=== PATIENT | female | born 1995 | race African-American/Black ===

== ENCOUNTER 2018-07-24 12:42 | Emergency (ER) | payer BC, MEDICAID, OTHER ==
[~2018-07-24] VITALS: Ht 167.6 cm; Wt 120.0 kg
[2018-07-24 15:25] VITALS: BP 141/86
== END 2018-07-24 16:29 | disposition home or self-care (01) ==
LOC: ER 16:08
DX: J06.9 Acute upper respiratory infection, unspecified (principal); H66.90 Otitis media, unspecified, unspecified ear; J32.9 Chronic sinusitis, unspecified; F12.10 Cannabis abuse, uncomplicated; Z88.6 Allergy status to analgesic agent
CPT/HCPCS: 99283

== ENCOUNTER 2019-04-09 11:24 | Emergency (ER) | payer BC, MEDICAID, OTHER ==
[~2019-04-09] VITALS: Ht 167.6 cm; Wt 118.0 kg
[2019-04-09 13:50] LABS: CLARITY URINE CLEAR (CLEAR); COLOR URINE YELLOW (YELLOW); KETONES URINE NEGATIVE (NEGATIVE); LEUKOCYTE ESTERASE URINE NEGATIVE (NEGATIVE); NITRITE URINE NEGATIVE (NEGATIVE); OCCULT BLOOD URINE TRACE (NEGATIVE); PH URINE 5.5 (4.5-8.0); PROTEIN URINE NEGATIVE (NEGATIVE); SPECIFIC GRAVITY URINE 1.015 (1.005-1.030); UROBILINOGEN URINE 0.2 E.U./dL (0.2-1.0)
[2019-04-09 15:32] VITALS: BP 148/73
== END 2019-04-09 17:04 | disposition home or self-care (01) ==
LOC: ER 11:24
DX: R30.0 Dysuria (principal); F12.10 Cannabis abuse, uncomplicated; Z88.6 Allergy status to analgesic agent; Z87.440 Personal history of urinary (tract) infections
CPT/HCPCS: 81025; 99283

== ENCOUNTER 2019-07-31 08:14 | Emergency (ER) | payer MEDICAID ==
[~2019-07-31] VITALS: Ht 167.6 cm; Wt 120.0 kg
[2019-07-31 09:27] LABS: CLARITY URINE CLEAR (CLEAR); COLOR URINE YELLOW (YELLOW); KETONES URINE NEGATIVE (NEGATIVE); LEUKOCYTE ESTERASE URINE NEGATIVE (NEGATIVE); NITRITE URINE NEGATIVE (NEGATIVE); OCCULT BLOOD URINE TRACE (NEGATIVE); PROTEIN URINE NEGATIVE (NEGATIVE); SPECIFIC GRAVITY URINE 1.013 (1.005-1.030); UROBILINOGEN URINE 0.2 E.U./dL (0.2-1.0)
[2019-07-31 10:09] VITALS: BP 136/74
== END 2019-07-31 10:12 | disposition home or self-care (01) ==
LOC: ER 08:32
DX: R30.0 Dysuria (principal); R10.2 Pelvic and perineal pain; F12.10 Cannabis abuse, uncomplicated; Z88.6 Allergy status to analgesic agent; Z87.440 Personal history of urinary (tract) infections
CPT/HCPCS: 81003; 81025; 82962; 99283

== ENCOUNTER 2020-05-24 16:29 | Emergency (ER) | payer MEDICAID, OTHER ==
[~2020-05-24] VITALS: Ht 167.6 cm; Wt 120.0 kg
[2020-05-24] MEDS ORDERED: METF-416 PO (16:37)
[2020-05-24] MEDS ORDERED: HYDROCODONE/ACETAMINOPHEN 5/325MG TABLET PO ONE (17:45)
[2020-05-24 17:46] VITALS: BP 149/97
== END 2020-05-24 18:23 | disposition home or self-care (01) ==
LOC: ER 16:29
DX: M54.30 Sciatica, unspecified side (principal); F12.10 Cannabis abuse, uncomplicated
CPT/HCPCS: 99283

== ENCOUNTER 2020-06-06 09:11 | Emergency (ER) | payer OTHER ==
[~2020-06-06] VITALS: Ht 167.6 cm; Wt 127.0 kg
[~2020-06-06 09:11] MED LIST: METF-416 PO
[2020-06-06 09:16] VITALS: BP 149/75
[2020-06-06] MEDS ORDERED: OXYCODONE HCL/ACETAMINOPHEN 5/325MG TABLET PO ONE (11:15)
== END 2020-06-06 11:58 | disposition home or self-care (01) ==
LOC: ER 09:11
DX: M54.31 Sciatica, right side (principal); N39.0 Urinary tract infection, site not specified; Z88.6 Allergy status to analgesic agent
CPT/HCPCS: 99281

== ENCOUNTER 2021-02-14 04:24 | Emergency (ER) | payer OTHER ==
[~2021-02-14] VITALS: Ht 167.6 cm; Wt 127.0 kg
[2021-02-14] MEDS ORDERED: KETOROLAC 30MG/ML VIAL IM ONE (05:00)
[2021-02-14] MEDS ORDERED: IBUP-2029 MT ×2 (06:02)
[2021-02-14 06:06] LABS: CLARITY URINE CLEAR (CLEAR); COLOR URINE YELLOW (YELLOW); KETONES URINE NEGATIVE (NEGATIVE); LEUKOCYTE ESTERASE URINE NEGATIVE (NEGATIVE); NITRITE URINE NEGATIVE (NEGATIVE); OCCULT BLOOD URINE 3+ (NEGATIVE); PH URINE 5.5 (4.5-8.0); PROTEIN URINE NEGATIVE (NEGATIVE); SPECIFIC GRAVITY URINE 1.013 (1.005-1.030); UROBILINOGEN URINE 0.2 E.U./dL (0.2-1.0)
[2021-02-14] MEDS ORDERED: NAP5EC MT (06:37)
[2021-02-14 06:48] VITALS: BP 119/72
== END 2021-02-14 06:56 | disposition home or self-care (01) ==
LOC: ER 04:24
DX: S29.011A Strain of muscle and tendon of front wall of thorax, initial encounter (principal); R35.0 Frequency of micturition; E28.2 Polycystic ovarian syndrome; M54.30 Sciatica, unspecified side; F12.10 Cannabis abuse, uncomplicated; X50.0XXA Overexertion from strenuous movement or load, initial encounter; Y93.89 Activity, other specified; Y92.89 Other specified places as the place of occurrence of the external cause; Y99.8 Other external cause status
CPT/HCPCS: 81003; 82962; 96372; 99283; J1885

== ENCOUNTER 2021-09-10 18:56 | Emergency (ER) | payer OTHER ==
[~2021-09-10] VITALS: Ht 162.6 cm; Wt 91.0 kg
[~2021-09-10 18:56] MED LIST changes: +NAP5EC MT
[2021-09-10] MEDS ORDERED: ACETAMINOPHEN 325MG TABLET PO ONE (21:00)
[2021-09-10] MEDS ORDERED: IBUPROFEN 400MG TABLET PO ONE (21:00)
[2021-09-10] MEDS ORDERED: ONDANSETRON 4MG ODT PO ONE (21:15)
[2021-09-10 21:59] LABS: BASOPHILS % 0.4 % (0.0-2.0); EOSINOPHILS % 2.3 % (0.0-5.0); HEMATOCRIT. 36.4 % (36.0-48.0); HEMOGLOBIN. 12.1 g/dL (12.0-16.0); LYMPHOCYTES % 34.6 % (20.0-50.0); MEAN CORPUSCULAR HEMOGLOBIN 29.6 pg (28.0-32.0); MEAN PLATELET VOLUME 7.8 fl (7.4-10.4); MONOCYTES % 7.2 % (2.0-8.0); NEUTROPHILS % 55.5 % (40.0-76.0); PLATELET 333 x1000/uL (130-400); RED BLOOD CELL COUNT 4.08 mill/uL (4.2-5.4); RED CELL DISTRIBUTION WIDTH 13.5 % (11.6-14.6)
[2021-09-10 22:06] LABS: CHLORIDE 109 mEq/L (98-107)
[2021-09-11 00:05] VITALS: BP 124/81
== END 2021-09-11 00:05 | disposition home or self-care (01) ==
LOC: ER 18:56
DX: R51.9 Headache, unspecified (principal); F12.10 Cannabis abuse, uncomplicated
CPT/HCPCS: 36415; 80053; 81025; 85025; 99284; Q0162

== ENCOUNTER 2021-11-07 22:20 | Emergency (ER) | payer MEDICAID, OTHER ==
[~2021-11-07] VITALS: Ht 167.6 cm; Wt 118.0 kg
[2021-11-07] MEDS ORDERED: ALBUTEROL 6.7GM HFA INHALER ORI ONE (22:45)
[2021-11-07] MEDS ORDERED: IBUPROFEN 400MG TABLET PO ONE (22:45)
[2021-11-07 23:30] LABS: BASOPHILS % 0.6 % (0.0-2.0); HEMOGLOBIN. 12.7 g/dL (12.0-16.0); LYMPHOCYTES % 21.1 % (20.0-50.0); MEAN CORPUSCULAR HEMOGLOBIN 29.6 pg (28.0-32.0); MEAN CORPUSCULAR VOLUME 88.6 fL (81.0-99.0); MONOCYTES % 8.2 % (2.0-8.0); NEUTROPHILS % 67.1 % (40.0-76.0); PLATELET 314 x1000/uL (130-400); RED BLOOD CELL COUNT 4.29 mill/uL (4.2-5.4); RED CELL DISTRIBUTION WIDTH 13.7 % (11.6-14.6)
[2021-11-07 23:33] LABS: CHLORIDE 107 mEq/L (98-107)
[2021-11-07 23:51] LABS: HCG SCREEN NEGATIVE
[2021-11-08] MEDS ORDERED: AMOX-494 MT (00:34)
[2021-11-08] MEDS ORDERED: ALBU6.7H9 INH (00:34)
[2021-11-08 00:45] VITALS: BP 129/90
== END 2021-11-08 00:47 | disposition home or self-care (01) ==
LOC: ER 22:20
DX: J45.901 Unspecified asthma with (acute) exacerbation (principal); H66.92 Otitis media, unspecified, left ear; F12.10 Cannabis abuse, uncomplicated
CPT/HCPCS: 36415; 71045; 80053; 84703; 85025; 93005; 94640; 99285

== ENCOUNTER 2021-11-21 16:03 | Emergency (ER) | payer MEDICAID ==
[~2021-11-21] VITALS: Ht 167.6 cm; Wt 123.0 kg
[~2021-11-21 16:03] MED LIST changes: +ALBU6.7H9 INH; +AMOX-494 MT
[2021-11-21] MEDS ORDERED: ONDANSETRON 4MG ODT PO ONE (18:45)
[2021-11-21] MEDS ORDERED: SODIUM CHLORIDE 0.9% 1,000 ML IV ONE (18:45)
[2021-11-21] MEDS ORDERED: ONDANSETRON HCL 4MG/2ML INJ IV STA (18:45)
[2021-11-21 19:50] LABS: HEMATOCRIT. 39.8 % (36.0-48.0); HEMOGLOBIN. 13.6 g/dL (12.0-16.0); MEAN CORPUSCULAR HEMOGLOBIN 30.2 pg (28.0-32.0); MEAN CORPUSCULAR VOLUME 88.3 fL (81.0-99.0); MEAN PLATELET VOLUME 8.2 fl (7.4-10.4); PLATELET 315 x1000/uL (130-400); RED BLOOD CELL COUNT 4.51 mill/uL (4.2-5.4); RED CELL DISTRIBUTION WIDTH 13.9 % (11.6-14.6)
[2021-11-21 19:57] LABS: CHLORIDE 105 mEq/L (98-107)
[2021-11-21 20:35] LABS: CLARITY URINE CLEAR (CLEAR); COLOR URINE YELLOW (YELLOW); KETONES URINE TRACE (NEGATIVE); LEUKOCYTE ESTERASE URINE 1+ (NEGATIVE); NITRITE URINE NEGATIVE (NEGATIVE); OCCULT BLOOD URINE 2+ (NEGATIVE); PH URINE 5.5 (4.5-8.0); PROTEIN URINE NEGATIVE (NEGATIVE); SPECIFIC GRAVITY URINE 1.017 (1.005-1.030); UROBILINOGEN URINE 0.2 E.U./dL (0.2-1.0)
[2021-11-21] MEDS ORDERED: METOCLOPRAMIDE HCL 10MG/2ML VIAL IV ONE (21:45)
[2021-11-21] MEDS ORDERED: DIPHENHYDRAMINE 50MG/ML VIAL IV ONE (21:45)
[2021-11-21] MEDS ORDERED: KETOROLAC 15MG/ML VIAL IV ONE (21:45)
[2021-11-21] MEDS ORDERED: ONDA4TAB5 MT (22:44)
[2021-11-21] MEDS ORDERED: NITR-87 MT (22:44)
[2021-11-21 22:57] VITALS: BP 126/78
[2021-11-21 23:10] LABS: PLATELET ESTIMATE NORMAL
== END 2021-11-21 22:58 | disposition home or self-care (01) ==
LOC: ER 16:04
DX: N39.0 Urinary tract infection, site not specified (principal); K52.9 Noninfective gastroenteritis and colitis, unspecified; J45.909 Unspecified asthma, uncomplicated; Z20.822 Contact with and (suspected) exposure to COVID-19
CPT/HCPCS: 36415; 80053; 81003; 81025; 85025; 87426; 87491; 87591; 96361; 96374; 96375; 99284; J1200; J1885; J2405; J2765; J7030

== ENCOUNTER 2022-05-15 08:11 | Emergency (ER) | payer MEDICAID, OTHER ==
[~2022-05-15] VITALS: Ht 167.6 cm; Wt 127.0 kg
[~2022-05-15 08:11] MED LIST changes: +NITR-87 MT; +ONDA4TAB5 MT
[2022-05-15 09:02] LABS: CLARITY URINE CLEAR (CLEAR); COLOR URINE YELLOW (YELLOW); KETONES URINE NEGATIVE (NEGATIVE); LEUKOCYTE ESTERASE URINE 2+ (NEGATIVE); NITRITE URINE NEGATIVE (NEGATIVE); OCCULT BLOOD URINE 1+ (NEGATIVE); PH URINE 5.5 (4.5-8.0); PROTEIN URINE NEGATIVE (NEGATIVE); SPECIFIC GRAVITY URINE 1.015 (1.005-1.030); UROBILINOGEN URINE 0.2 E.U./dL (0.2-1.0)
[2022-05-15] MEDS ORDERED: CEPH500C2 MT (09:38)
[2022-05-15 09:58] VITALS: BP 136/77
== END 2022-05-15 09:59 | disposition home or self-care (01) ==
LOC: ER 08:34
DX: N39.0 Urinary tract infection, site not specified (principal); E28.2 Polycystic ovarian syndrome; J45.909 Unspecified asthma, uncomplicated; F12.10 Cannabis abuse, uncomplicated
CPT/HCPCS: 81003; 81025; 99283

== ENCOUNTER 2022-05-23 08:02 | Emergency (ER) | payer OTHER ==
[~2022-05-23] VITALS: Ht 167.6 cm; Wt 100.0 kg
[~2022-05-23 08:02] MED LIST changes: +CEPH500C2 MT
[2022-05-23 08:05] VITALS: BP 131/96
[2022-05-23 09:21] LABS: CLARITY URINE CLEAR (CLEAR); COLOR URINE YELLOW (YELLOW); KETONES URINE NEGATIVE (NEGATIVE); LEUKOCYTE ESTERASE URINE 3+ (NEGATIVE); NITRITE URINE NEGATIVE (NEGATIVE); OCCULT BLOOD URINE TRACE (NEGATIVE); PH URINE 5.5 (4.5-8.0); PROTEIN URINE TRACE (NEGATIVE); UROBILINOGEN URINE 0.2 E.U./dL (0.2-1.0)
[2022-05-23 09:46] LABS: BASOPHILS % 0.6 % (0.0-2.0); EOSINOPHILS % 1.2 % (0.0-5.0); HEMATOCRIT. 38.6 % (36.0-48.0); HEMOGLOBIN. 12.4 g/dL (12.0-16.0); LYMPHOCYTES % 21.1 % (20.0-50.0); MEAN CORPUSCULAR HEMOGLOBIN 29.2 pg (28.0-32.0); MEAN CORPUSCULAR VOLUME 90.8 fL (81.0-99.0); MEAN PLATELET VOLUME 7.5 fl (7.4-10.4); MONOCYTES % 6.3 % (2.0-8.0); NEUTROPHILS % 70.8 % (40.0-76.0); PLATELET 418 x1000/uL (130-400); RED BLOOD CELL COUNT 4.25 mill/uL (4.2-5.4); RED CELL DISTRIBUTION WIDTH 13.9 % (11.6-14.6)
[2022-05-23 09:51] LABS: CHLORIDE 111 mEq/L (98-107)
[2022-05-23 10:01] LABS: HCG SCREEN NEGATIVE
[2022-05-23] MEDS ORDERED: CIPR250T4 MT (11:12)
[2022-05-26 04:08] LABS: NEISSERIA GONORRHOEAE NAA Negative (Negative)
== END 2022-05-23 12:02 | disposition home or self-care (01) ==
LOC: ER 08:02
DX: N39.0 Urinary tract infection, site not specified (principal); J45.909 Unspecified asthma, uncomplicated; F12.10 Cannabis abuse, uncomplicated
CPT/HCPCS: 36415; 76856; 80053; 81003; 81025; 84703; 85025; 87086; 87491; 87591; 99284; Z7610

== ENCOUNTER 2022-09-15 03:38 | Emergency (ER) | payer OTHER ==
[~2022-09-15] VITALS: Ht 167.6 cm; Wt 125.0 kg
[~2022-09-15 03:38] MED LIST changes: +ALBU6.7H3 INH; -ALBU6.7H9 INH; +CIPR250T4 MT
[2022-09-15 03:55] VITALS: BP 134/66
== END 2022-09-15 08:35 | disposition left against medical advice (07) ==
LOC: ER 03:38
DX: Z53.21 Procedure and treatment not carried out due to patient leaving prior to being seen by health care provider (principal)

== ENCOUNTER 2023-06-15 06:12 | Emergency (ER) | payer OTHER ==
[~2023-06-15] VITALS: Ht 167.6 cm; Wt 125.0 kg
[2023-06-15 06:53] VITALS: O2SAT 100
[2023-06-15] MEDS ORDERED: TOPUD PO (08:58)
[2023-06-15] MEDS ORDERED: FLUT9.9S BOTHNSTRLS (08:58)
[2023-06-15] MEDS ORDERED: LORA10CA PO (08:58)
[2023-06-15] MEDS ORDERED: ACETAMINOPHEN 325MG TABLET PO ONE (09:00)
[2023-06-15 09:45] VITALS: BP 138/74; PULSE 63; RESP 18; TEMP 98.7
== END 2023-06-15 09:48 | disposition home or self-care (01) ==
LOC: ER 06:12
DX: B34.9 Viral infection, unspecified (principal); F12.10 Cannabis abuse, uncomplicated; Z20.822 Contact with and (suspected) exposure to COVID-19
CPT/HCPCS: 99284; 71045; 87426; 81025; 87430; 87070; C9803

== ENCOUNTER 2023-07-29 11:49 | Emergency (ER) | payer OTHER ==
[~2023-07-29] VITALS: Ht 152.4 cm; Wt 126.6 kg
[~2023-07-29 11:49] MED LIST changes: +FLUT9.9S BOTHNSTRLS; +LORA10CA PO; +TOPUD PO
[2023-07-29 12:09] VITALS: BP 116/54; PULSE 56; RESP 16; TEMP 98.2; O2SAT 100
[2023-07-29 14:10] LABS: CLARITY URINE CLEAR (CLEAR); COLOR URINE YELLOW (YELLOW); GLUCOSE URINE NEGATIVE (NEGATIVE); KETONES URINE NEGATIVE (NEGATIVE); LEUKOCYTE ESTERASE URINE NEGATIVE (NEGATIVE); NITRITE URINE NEGATIVE (NEGATIVE); OCCULT BLOOD URINE 2+ (NEGATIVE); PH URINE 5.5 (4.5-8.0); PROTEIN URINE NEGATIVE (NEGATIVE); SPECIFIC GRAVITY URINE 1.015 (1.005-1.030); UROBILINOGEN URINE 0.2 E.U./dL (0.2-1.0)
[2023-07-29 14:17] LABS: BACTERIA URINE NONE SEEN; SQUAMOUS EPITHELIAL CELL URINE NONE SEEN /lpf (RARE/1+); WBC URINE NONE SEEN /hpf (0-2); YEAST URINE NONE SEEN
[2023-07-29 16:06] LABS: RBC URINE 0-2 /hpf (0-2); URIC ACID CRYSTALS URINE 1+ /lpf
== END 2023-07-29 17:56 | disposition home or self-care (01) ==
LOC: ER 11:49
DX: R30.0 Dysuria (principal); F12.10 Cannabis abuse, uncomplicated
CPT/HCPCS: 81003; 81025; 99283

== ENCOUNTER 2023-09-08 07:24 | Emergency (ER) | payer OTHER ==
[~2023-09-08] VITALS: Ht 162.6 cm; Wt 108.0 kg
[2023-09-08 07:31] VITALS: BP 153/81
[2023-09-08] MEDS ORDERED: PREDNISONE 20MG TABLET PO STA (08:07)
[2023-09-08] MEDS ORDERED: IPRATROPIUM BROMIDE (0.02%) 0.5MG/2.5ML NEB HHN STA (08:07)
[2023-09-08 08:30] VITALS: PULSE 98; RESP 24; O2SAT 98
[2023-09-08] MEDS: ALBUTEROL (0.083%) 2.5MG/3ML NEB HHN SCH ×3 (08:30→09:30)
[2023-09-08] MEDS ORDERED: P20 MT (10:39)
[2023-09-08 11:01] VITALS: PULSE 92; RESP 18; TEMP 97.8
== END 2023-09-08 11:04 | disposition home or self-care (01) ==
LOC: ER 07:24
DX: J45.901 Unspecified asthma with (acute) exacerbation (principal); F12.10 Cannabis abuse, uncomplicated
CPT/HCPCS: 81025; 71045; 93005; 94644; 99285; J7512; Z7610 ×2